=== PATIENT | male | born 1940 | race Caucasian/White ===

== ENCOUNTER → 2017-09-06 | Day surgery (SDC) | payer MEDICARE, OTHER ==
[~2017-09-06] MED LIST: Propofol 200 MG/20 ML SDV IV ONE
[2017-09-06] MEDS: Lactated Ringers 1,000 ML IV SCH (10:35)
[2017-09-06 11:57] VITALS: BP 122/70
--- NOTE | 2017-09-06 13:34 | OR ---
DATE OF OPERATION: 09/06/2017 PREOPERATIVE DIAGNOSIS: HISTORY OF POLYPS. POSTOPERATIVE DIAGNOSIS: HISTORY OF POLYPS. SURGEON: Shoaib Davey MD PROCEDURE: FULL-LENGTH COLONOSCOPY. ANESTHESIA: [employer] due to sleep apnea. COMPLICATIONS: None. SPECIMEN: None. FINDINGS: 1. Full-length colonoscopy. 2. Mild sigmoid diverticulosis. RECOMMENDATIONS: Follow up colonoscopy in 5 years. INDICATIONS: The patient has a history of polyps. He was due for a 3 or 4 year followup scope. DESCRIPTION OF PROCEDURE: The patient was prepped and draped, placed in left lateral decubitus position. A lubricated Olympus colonoscope was inserted and with ease advanced to the cecum. Direct visualization of the ileocecal valve and appendiceal orifice was accomplished. The bowel prep was fine. Upon withdrawal of the scope, throughout the entire length of the colon, I could find no signs of any polyps, mass, ulcerations, or bleeding sites. No vascular abnormalities or signs of colitis. A few scattered diverticula in the sigmoid area, mild in severity. The rectal vault was benign. Retroflexion showed no anal lesions. Air was suctioned. Scope was removed without complication. GALO/DANIELE /[id number]
== END ==
LOC: CC.SDS 10:17
PROVIDERS: ATTEND Family Medicine
DX: Z12.11 Encounter for screening for malignant neoplasm of colon (principal); K57.30 Diverticulosis of large intestine without perforation or abscess without bleeding; G47.30 Sleep apnea, unspecified; Z88.5 Allergy status to narcotic agent; Z86.010 Personal history of colon polyps
CPT/HCPCS: G0121; J7120